=== PATIENT | female | born 1965 ===

== ENCOUNTER 2019-10-12 00:20 | Inpatient (IN) | payer SELFPAY ==
[~2019-10-12] VITALS: Ht 167.6 cm; Wt 68.1 kg
[2019-10-12] VITALS (13 sets, daily range): BP systolic 125–148; BP diastolic 74–99; Ht 167.6 cm; Wt 68.1 kg
--- NOTE | 2019-10-12 01:08 | NUR ---
ATTEMPTED TO COLLECT RSV SPECIMEN AND LAB DRAW, PT BECAME COMBATIVE. HITTING NURSES ARMS. PT YELLING, "YOU'RE NOT GONNA DO IT. THE CDC WILL COME IN HERE TO DO IT." PT RANTING ABOUT HER NAME BEING YOLANDA, PT THRASHING IN BED. EDP NOTIFIED.
[2019-10-12 01:33] LABS: BILIRUBIN NEGATIVE (NEGATIVE); GLUCOSE NEGATIVE (NEGATIVE); KETONE NEGATIVE (NEGATIVE); NITRITE NEGATIVE (NEGATIVE); SPECIFIC GRAVITY 1.015 (1.005-1.020); UROBILINOGEN NORMAL (NORMAL)
[2019-10-12 01:42] LABS: UDS - AMPHET POSITIVE QUAL (NEGATIVE); UDS - BARB NEGATIVE QUAL (NEGATIVE); UDS - BENZO NEGATIVE QUAL (NEGATIVE); UDS - COCAINE NEGATIVE QUAL (NEGATIVE); UDS - OPIATE NEGATIVE QUAL (NEGATIVE); UDS - PCP NEGATIVE QUAL (NEGATIVE); UDS - THC POSITIVE QUAL (NEGATIVE)
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
[2019-10-12 03:34] LABS: CALC OSMOLALITY 274 mosm/kg (275-300); CALCIUM 8.3 mg/dL (8.5-10.1); CARBON DIOXIDE 25.8 mmol/L (21.0-32.0); CHLORIDE - SERUM 103 mmol/L (98-107); CREATININE - SERUM 0.6 mg/dL (0.6-1.3); GLUCOSE 105 mg/dL (74-106); SODIUM 136 mmol/L (136-145); UREA NITROGEN 20 mg/dL (7-18); eGFR NON AFRICAN AMERICAN > 90 mL/min (90-120)
[2019-10-12 03:53] LABS: ALBUMIN 3.3 g/dL (3.4-5.0); ALKALINE PHOSPHATASE 69 U/L (30-120); ALT (SGPT) 21 U/L (10-68); AMYLASE - SERUM 29 U/L (25-115); BILIRUBIN - TOTAL 0.42 mg/dL (0.2-1.3); CKMB 6.6 U/L (0.0-3.6); CREATINE KINASE 357 UL (21-215); FERRITIN 31 ng/mL (3-244); LIPASE 87 U/L (73-393); PRO BNP 194 pg/mL (0-125); PROTEIN - SERUM 6.9 g/dL (6.4-8.2)
[2019-10-12 03:55] LABS: TROPONIN-I < 0.017 ng/mL (0.000-0.060)
[2019-10-12 04:00] LABS: HEMATOCRIT 32.8 % (36.0-48.0); HEMOGLOBIN 10.7 g/dL (12-16); LYMPHOCYTES 27.8 % (15-50); MCH 29.2 pg (26.0-34.0); MCHC 32.6 g/dL (31.0-37.0); MCV 89.6 fL (80.0-100.0); MEAN PLATELET VOLUME 10.3 fL (7.4-10.4); NEUTROPHILS 60.2 % (40-80); PLATELET COUNT 249 10x3/uL (130-400); RBC 3.66 10x6/uL (4.00-5.40); RDW 14.7 % (11.5-14.5); WBC 8.9 10x3/uL (4.8-10.8)
[2019-10-12 04:09] LABS: APTT 28.5 SECONDS (22.8-39.4); INR 0.94 (0.85-1.17); PROTIME 12.5 SECONDS (11.6-15.0)
[2019-10-12 04:10] LABS: D-DIMER-QUANTITATIVE 0.45 ug/mLFEU (0.20-0.54)
[2019-10-12 04:12] LABS: POTASSIUM - SERUM 3.9 mmol/L (3.5-5.1)
--- NOTE | 2019-10-12 05:20 | NUR ---
RECEIVED PT TO ROOM 2312 VIA STRETCHER ACCOMPANIED BY ER STAFF. PT UNCOOPERATIVE/UNWILLING TO TRANSFER TO ICU BED, ACCOMPLISHED VIA DRAW SHEET. ICU MONITORS ESTABLISHED WITH ALARMS ON, VSS. PT ANSWERS VERY FEW QUESTIONS, YELLS "NO!" TO MOST INQUIRIES. RT SHOULDER IO WITH NS INFUSING @ 125 CC/HR, BED LOW, ALARM ON, WILL MONITOR.
--- NOTE | 2019-10-12 08:13 | NUR ---
PT RESTING QUIETLY, VSS, ALL MONITORING EQUIPMENT ATTACHED. ALARMS SET.
[2019-10-12 09:51] LABS: % SATURATION 6 % (15-55); IRON 24 ug/dl (35-150); TOTAL IRON BIND CAPACITY 360 ug/dl (260-445); UNSAT IRON BIND CAPACITY 336 ug/dl (150-375)
--- NOTE | 2019-10-12 10:15 | NUR ---
CALLED AND REPORTS THAT [facility] IS PERFERED HOSPICE SERVICE. REPORTED TO GALINA IN CM.
--- NOTE | 2019-10-12 12:57 | NUR ---
DR HENDERSON HERE. ER NOTIFIED TO DC I.O. PT REFUSING TO ALLOW THIS RN TO SITE PIV. SHE STATES "NO: AND ROLLS OVER ON HER ARMS.
--- NOTE | 2019-10-12 14:24 | NUR ---
PT REFUSING TO ALLOW THIS RN TO SITE IV SO THAT I.O. CAN BE TAKEN OUT. DAUGHTER CALLED AND DID NOT WANT TO ALLOW THIS RN TO HAVE HER PHONE NUMBER. DID GET DAUGHTERS PHONE NUMBER FROM CALLER ID. REPORTED TO DR HENDERSON THAT PT REFUSING IV TO BE SITED. PT DID TAKE HER PO PROTONIX. PT REPORTS THAT SHE HAS NOT BEEN AROUND ANY ONE WITH COVID-19. DAUGHTER ON PHONE AND SHE STATES THAT SHE DOESN'T HAVE COVID 19. AFEBRILE AND VSS. DR HENDERSON HERE AGAIN ON ROUNDS AND SPOKE TO PT RE: GOING HOME.
--- NOTE | 2019-10-12 15:22 | NUR ---
DAUGHTER CALLED BACK AND REPORTS TO CALL A CAB AND SHE WILL USE DEBT CARD. PT OOB TO CHAIR TO VOID.
--- NOTE | 2019-10-12 15:51 | NUR ---
GAVE PT DRY CLEAN SCRUBS BECAUSE HERS WERE WET. PT REFUSING TO GET OOB. PT DOES FINALLY GET OOB AND IS REFUSING TO GIVE DR HENDERSON A PHARMACY THAT HE CAN CALL [facility] TO. FINALLY PT DOES GIVE POC. RX CALLED.
[2019-10-12] MEDS ORDERED: LEVAQUIN750 MG PO (15:52)
--- NOTE | 2019-10-12 15:59 | NUR ---
RX CALLED TO [facility]. BACTRUM DS BID X 7 DAYS.PT VERB UNDERSTANDING.
--- NOTE | 2019-10-13 20:35 | MORECARE ---
CASE MANAGEMENT DISCHARGE SUMMARY PATIENT: DONNA ABBOTT UNIT: [id number] ADM DATE: 10/12/19 AGE: 53 : 61 SEX: F ROOM/BED: D.2312 AUTHOR: PACO FERNANDES PHYSICIAN: REFERRING PHYSICIAN: JORGE HENDERSON MD DATE OF SERVICE: 10/13/19 Discharge Plan Patient Name: DONNA ABBOTT [facility] [facility] 1965 Planned Disposition: Home Anticipated Discharge Date: Discharge Date: 10/12/2019 Expected LOS: Initial Reviewer: [email or web address] Initial Review Date: 10/12/2019 Generated: 10/13/19 9:34 pm Comments DCP- Discharge Planning Updated by [email or web address]: Radha Almeida on 10/13/19 7:[address] CM notified that patient was needing transportation home. She had no family that would come pick her up. When CM went to meet with patient she had called a taxi and family would pay once she arrived at home. Patient Name: DONNA ABBOTT Page [phone] at 2034 All edits/amendments must be made on the electronic document DICTATION DATE: 10/13/192033 BATTALION FIRE CHIEF: DAVID 10/13/192033 RPT#: [id number] DC DATE:10/12/19 STATUS: DIS IN [facility] [address] [place] [address] END OF REPORT
== END 2019-10-12 16:48 | disposition home or self-care (01) | DRG 92 ==
LOC: D.ER 00:20 → D.ICU 02:33
PROVIDERS: Family Medicine; ADMIT Internal Medicine Nephrology; ATTEND Internal Medicine Nephrology
DX: G92 Toxic encephalopathy (principal); N17.9 Acute kidney failure, unspecified; F15.10 Other stimulant abuse, uncomplicated; I10 Essential (primary) hypertension; D64.9 Anemia, unspecified; Z20.828 Contact with and (suspected) exposure to other viral communicable diseases